=== PATIENT | female | born 1970 | race Caucasian/White ===

== ENCOUNTER 2017-05-23 15:42 | Emergency (ER) | payer SELFPAY ==
[~2017-05-23] VITALS: Ht 172.7 cm; Wt 68.0 kg
[2017-05-23 15:42] VITALS: BP 121/75
[2017-05-23] MEDS ORDERED: DIAZ5TAB PO (16:07)
[2017-05-23] MEDS ORDERED: HYDR-2758 PO (16:07)
--- NOTE | 2017-05-23 16:07 | PHYS DOC ---
Past History Past Medical History: No Pertinent History Past Surgical History: No Surgical History Smoking: Cigarettes, Greater than 1 pack/day Alcohol Use: None Drug Use: None Adult General Chief Complaint Chief Complaint: DENTAL PROBLEM HPI HPI Patient is a pleasant 46-year-old female with a history of bruxism who presents with unilateral left-sided jaw pain that began yesterday. Patient stayed on the hotel she thought was particular dirty she believes a bug may have crawled in her ear. She is describing a dull ache at her jaw that is worse with chewing, she denies any facial swelling, redness any direct trauma, denies any heat or cold sensitivity to her teeth. She denies any sore throat or change in voice. Patient denies any drainage from the ear or recent URI symptoms. She denies fever, nausea, vomiting, chills, cough or URI symptoms. She denies any problems with her gumline but she has had a history of dental caries and prior dental work on her posterior teeth bilaterally both upper and lower. Review of Systems Review of Systems Constitutional: Denies fever or chills [] Eyes: Denies change in visual acuity, redness, or eye pain [] HENT: Denies nasal congestion or sore throat [] Respiratory: Denies cough or shortness of breath [] Cardiovascular: No additional information not addressed in HPI [] GI: Denies abdominal pain, nausea, vomiting, bloody stools or diarrhea [] : Denies dysuria or hematuria [] Musculoskeletal: She mainly complains of left-sided jaw pain. Facial ache Integument: Denies rash or skin lesions [] Neurologic: Denies headache, focal weakness or sensory changes [] Current Medications Current Medications Current Medications Medications (Trade) Dose Ordered Sig/[facility] Start Time Stop Time Status Last Admin Dose Admin Acetaminophen/ Hydrocodone Bitart (Lortab 5/325) 1 tab 1X ONCE 05/23/17 16:00 05/23/17 16:01 UNV Diazepam (Valium) 5 mg 1X ONCE 05/23/17 16:00 05/23/17 16:01 UNV Physical Exam Physical Exam Vital signs record and nursing notes within normal limits. Constitutional: Well developed, well nourished, patient is hours and comfortable there is no soft tissue swelling HENT: Normocephalic, atraumatic, bilateral external ears normal, oropharynx moist, no oral exudates, nose normal. Patient's teeth and chin do not demonstrate any signs of swelling or soft tissue tenderness to palpation. Patient has multiple dental caries and been treated with fillings in the past. Patient is marked tenderness to palpation over the left TMJ. Patient's TMs are completely normal no evidence of otitis externa patient is a foreign body in ear bilaterally. Eyes: PERRLA, EOMI, conjunctiva normal, no discharge. [] Neck: Normal range of motion, no tenderness, supple, no stridor. [] Cardiovascular:Heart rate regular rhythm, no murmur [] Lungs & Thorax: Bilateral breath sounds clear to auscultation [] Skin: Warm, dry, no erythema, no rash. [] Extremities: No tenderness, no cyanosis, no clubbing, ROM intact, no edema. [] Neurologic: Alert and oriented X 3, normal motor function, normal sensory function, no focal deficits noted. [] Psychologic: Patient is mildly anxious. EKG EKG [] Radiology/Procedures Radiology/Procedures [] Course & Med Decision Making Course & Med Decision Making Pertinent Labs and Imaging studies reviewed. (See chart for details) [] Dragon Disclaimer Dragon Disclaimer This chart was dictated in whole or in part using Voice Recognition software in a busy, high-work load, and often noisy Emergency Department environment. It may contain unintended and wholly unrecognized errors or omissions. Departure Departure: Impression: Primary Impression: Sleep related bruxism Additional Impression: TMJ (temporomandibular joint disorder) Disposition: 01 HOME, SELF-CARE Condition: STABLE Referrals: JEAN NORRIS (PCP) Patient Instructions: Temporomandibular Joint Pain-Brief, Temporomandibular Problems Additional Instructions: Please return for any new or increasing symptoms, I would advise a use a soft mechanical diet to help treat your symptoms. Use the medications as prescribed. Please follow-up with your dentist as they may be able to fashion a bite block for treatment and improved her symptoms Scripts Diazepam (VALIUM) 5 Mg Tablet 5 MG PO TID for 5 Days, #15 TAB Please use one tablet every 8 hours as needed for muscle spasms. Do not drink alcohol or use other narcotics with this medication. Prov: KELLY WILKES MD 05/23/17 Hydrocodone Bit/Acetaminophen (HYDROCODONE-APAP 5-325 ) 1 Each Tablet 1 TAB PO PRN Q6HRS Y for PAIN for 5 Days, #10 TAB 0 Refills Prov: KELLY WILKES MD 05/23/17 Problem Qualifiers KELLY WILKES MD May 23, 2017 16:07
[2017-05-23] MEDS ORDERED: HYDROcodone/APAP 5/325MG 1 TAB TABLET PO ONE (16:30)
[2017-05-23] MEDS ORDERED: diazePAM 5 MG TABLET PO ONE (16:30)
== END 2017-05-23 16:10 | disposition home or self-care (01) ==
LOC: ER 15:42
DX: G47.63 Sleep related bruxism (principal); M26.602 Left temporomandibular joint disorder, unspecified; F17.210 Nicotine dependence, cigarettes, uncomplicated
CPT/HCPCS: 99283